=== PATIENT | female | born 1990 | race Caucasian/White ===

== ENCOUNTER → 2017-12-11 11:35 | Outpatient (CLI) | payer MEDICAID, SELFPAY ==
[2017-12-11 14:04] LABS: Absolute Lymphocyte Count 4.65 X10^3/ul (0.83-4.51); Absolute Neutrophil Count 5.2 X10^3/uL (2.0-7.7); Basophil# 0.03 X10^3/uL; Basophil% 0.3 % (0-1); Eosinophil# 0.37 X10^3/uL; Eosinophils% 3.4 % (0-5); Hematocrit 42.2 % (37-47); Hemoglobin 13.7 g/dl (12.0-15.0); Lymphocyte # 4.65 X10^3/ul (4.0); Lymphocyte % 42.3 % (19-41); Mean Corp Hgb Conc 32.5 g/gl (32-36); Mean Corpuscular Hgb 29.3 pg (27.0-32.0); Mean Corpuscular Volume 90.2 fL (81-99); Mean Platelet Vol. 10.9 fl (6.2-12.0); Monocyte# 0.69 X10^3/uL; Monocyte% 6.3 % (0-10); Neutrophil # 5.24 X10^3/uL (2.7-7.7); Neutrophil % 47.5 % (47-70); Platelet Count 325 K/mm3 (150-450); RBC Distribution Width CV 12.7 % (11.6-14.6); RBC Distribution Width SD 41.4 fl (35.1-43.9); Red Blood Count 4.68 M/mm3 (4.2-5.4)
[2017-12-11 14:05] LABS: POSITIVE COUNT NO; POSITIVE DIFFERENTIAL NO; POSITIVE MORPHOLOGY NO
[2017-12-11 14:21] LABS: Vitamin B12 779 pg/mL (211-911); Vitamin D,25 Hydroxy 29.5 ng/mL (29.95-100.01)
== END ==
PROVIDERS: Family Provider Family Medicine; PCP Family Medicine
DX: D72.829 Elevated white blood cell count, unspecified (principal); E53.8 Deficiency of other specified B group vitamins; E55.9 Vitamin D deficiency, unspecified
CPT/HCPCS: 36415; 82306; 82607; 85025

== ENCOUNTER 2019-09-19 18:26 | Emergency (ER) | payer MEDICAID, SELFPAY ==
[2019-09-19 18:27] VITALS: BP 138/76; PULSE 78; RESP 15; TEMP 36.5; O2SAT 97; BMI 40.8
--- NOTE | 2019-09-19 19:03 | CT_ITS ---
STUDY: CTA CHEST REASON FOR EXAM: Female, 28 years old. COUGH WITH RIB PAIN -- HX:ASTHMA RADIATION DOSAGE (If Supplied By Facility): CTDIvol = ( 14.73 ) mGy, DLP = ( 541.85 ) mGycm TECHNIQUE: The examination was performed with the intravenous administration of IV 100 ML ISOVUE 370. Post-processing of the angiographic images was performed, with multiplanar reformation and 3D reconstruction. Individualized dose optimization techniques were used for this CT. COMPARISON: None. FINDINGS: Normal enhancement of the main pulmonary artery and right and left pulmonary arteries. Normal enhancement of the bilateral peripheral pulmonary arteries. There is no demonstrated pulmonary embolism. Normal thoracic aorta and visualized great vessels. There is no demonstrated aortic dissection. Normal heart and pericardium. Normal mediastinum. Normal hilar regions. Normal visualized trachea and bronchi. The lungs are well expanded. There appears to be very mild nonspecific interstitial thickening. No focal infiltration or pulmonary nodule Normal pleura. Normal chest wall structures. Normal osseous structures. Normal visualized upper abdomen. CT/CTA Chest W/WO Contrast IMPRESSION: Minor nonspecific interstitial thickening.. No focal infiltration or pulmonary nodule No evidence for pulmonary embolus Electronically Signed: Kenny Galvin MD at 20:45 EST , Service support ,
--- NOTE | 2019-09-19 19:03 | CT_ITS ---
STUDY: CT ABDOMEN AND PELVIS WITHOUT CONTRAST REASON FOR EXAM: Female, 28 years old. RT FLANK PAIN,NAUSEA,VOMITING AND DIARRHEA,COUGH WITH RIB PAIN,PREG TEST WAS NEGATIVE -- HX:ASTHMA RADIATION DOSAGE (If Supplied By Facility): CTDIvol = ( 21.12 ) mGy, DLP = ( 1081.44 ) mGycm TECHNIQUE: Transaxial images were obtained from the dome of the diaphragm to the symphysis pubis without oral contrast, and without intravenous contrast. Sagittal and coronal images were reconstructed. Individualized dose optimization techniques were used for this CT. COMPARISON: None. FINDINGS: There is minor interstitial thickening in the lower lobes.. The visualized portions of the heart are within normal limits. There is elongation of the right lobe of the liver system with normal variant. Attenuation is homogeneous without mass or bile duct dilatation. Gallbladder not visualized which may be consistent with prior cholecystectomy.. Normal spleen. Normal pancreas. Normal bilateral adrenal glands. Normal right kidney. Normal left kidney. Normal visualized stomach. Mild nonspecific ileus.. The appendix is visualized and appears normal. Normal abdominal aorta. Normal inferior vena cava. Normal retroperitoneum. Incompletely distended mildly thick-walled bladder likely of no significance. Small fat-containing periumbilical hernia. Normal osseous structures. CT/Abdomen/Pelvis without Cont IMPRESSION: Mild nonspecific ileus . No evidence for small bowel obstruction. Nonvisualization of gallbladder likely cholecystectomy however clinical correlation is recommended Electronically Signed: Kenny Galvin MD at 20:49 EST , Service support ,
--- NOTE | 2019-09-19 19:17 | ED.DCSUM_ITS ---
- ER Visit Summary Date of Service: 09/19/19 Chief Complaint: Nausea, flank pain History of Present Illness: The patient is a 28 F presenting with nausea, flank pain. Patient states that this started 2 days ago. She has had subjective fevers and nausea without vomiting. She has had diarrhea. She complains of right flank pain. Denies urinary complaints. She states that it hurts to take a deep inspiration. No recent trauma. No PE/DVT risk factors. She states her right sided rib pain has been ongoing for the past 2 weeks but has been progressively worsening. She does have multiple sick contacts. She denies other complaints. Physical Examination: Vitals are stable. Patient is afebrile. Alert no acute distress. HEENT exam is unremarkable. Neck is supple. Lungs are clear and equal bilaterally. Heart is regular rate and rhythm. Abdomen is soft nontender nondistended. No guarding or rebound Right CVA tenderness Extremities are unremarkable. Skin is warm and dry. No focal neurologic deficit. Remainder of exam is unremarkable. Emergency Department Course and Treatment: Patient given IV fluids, Zofran. CBC, chemistries unremarkable. Lipase is normal. Urinalysis unremarkable. hCG negative. CTA chest shows minor nonspecific interstitial thickening. No focal infiltration or pulmonary nodule. No evidence for pulmonary embolus. CT abdomen pelvis shows mild nonspecific ileus. No evidence for small bowel obstruction. The appendix is visualized and appears normal. On reevaluation, patient is requesting discharge home. She is given a prescription for Zofran. Advised return to ED for worsening complaints. Disposition: Discharge home Impression: Nausea, diarrhea, flank pain This note was generated with [employer] dictation software. It may contain incorrect words, spelling, and punctuation that were not noted in review of the chart prior to signing ED Disposition - Plan for ED Patient: Disposition: Home or Assisted Living Instructions: VOMITING AND DIARRHEA, Nonspecific (Adult) Prescriptions: Ondansetron [Zofran Odt] 4 mg PO Q8H PRN PRN #10 tab PRN Reason: Nausea Prescription Printed Referrals: Kenny Richards MD [Primary Care Provider] -
[2019-09-19] MEDS: 0.9% Normal Saline 1,000 ML 1000 ML IV (19:18)
[2019-09-19] MEDS: Ondansetron 4 MG/2 ML Vial IV (19:18)
[2019-09-19 19:23] LABS: Absolute Lymphocyte Count 2.07 X10^3/uL (0.83-4.51); Absolute Neutrophil Count 5.7 X10^3/uL (2.0-7.7); Basophil# 0.04 X10^3/uL; Basophil% 0.5 % (0-1); Eosinophil# 0.13 X10^3/uL; Eosinophils% 1.5 % (0-5); Hematocrit 40.1 % (37-47); Hemoglobin 13.2 g/dL (12.0-15.0); Lymphocyte # 2.07 X10^3/ul (4.0); Lymphocyte % 24.3 % (19-41); Mean Corp Hgb Conc 32.9 g/dL (32-36); Mean Corpuscular Hgb 29.3 pg (27.0-32.0); Mean Corpuscular Volume 88.9 fL (81-99); Mean Platelet Vol. 10.7 fl (6.2-12.0); Monocyte# 0.61 X10^3/uL; Monocyte% 7.2 % (0-10); NRBC Flagged by Analyzer 0 % (0-5); Neutrophil # 5.66 X10^3/uL (2.7-7.7); Neutrophil % 66.3 % (47-70); Platelet Count 274 K/mm3 (150-450); RBC Distribution Width CV 12.9 % (11.6-14.6); RBC Distribution Width SD 42.2 fl (35.1-43.9); Red Blood Count 4.51 M/mm3 (4.2-5.4); White Blood Count 8.5 K/mm3 (4.4-11.0)
[2019-09-19 19:28] LABS: Bacteria 0 SEEN /hpf (None Seen); Mucous, Urine 0 SEEN /hpf (<or=2+); Red Blood Cells-Urine 0 SEEN /hpf (0-5)
[2019-09-19 19:29] LABS: Color, Urine Yellow (Yellow); Glucose, Dipstick Normal (Normal); Ketone-Dipstick Negative (Negative); Leukocyte Esterase-Dipstick Negative /ul (Negative); Nitrite-Dipstick Negative (Negative); Occult Blood-Urine 250 /ul (Negative); Protein-Dipstick Negative (Negative); Specific Gravity, Urine 1.015 (1.002-1.030); Urine Bilirubin Dipstick Negative (Negative); Urine Clarity Sl. Cloudy (Clear); Urine Urobilinogen Normal (Normal)
[2019-09-19 19:43] LABS: Internal QC Validated? YES +Cl - CLEAR BKGD; Pregnancy, Serum, hCG Quali. NEGATIVE Negative
[2019-09-19 19:49] LABS: ALB/GLOB Ratio 0.9 RATIO (0.9-2.4); AST(SGOT) 27 U/L (15-37); Alanine Aminotransfer ALT/SGPT 46 U/L (13-56); Albumin, Serum 3.5 g/dL (3.2-5.0); Alkaline Phosphatase 47 U/L (45-117); Anion Gap 6 (5-15); BUN 8 mg/dL (7-18); BUN/Creat Ratio 9.2 RATIO (10-20); Calcium,Total 8.9 mg/dL (8.5-10.1); Chloride 110 mmol/L (98-107); Creatinine, Serum 0.87 mg/dL (0.55-1.02); EST Glomerular Filtration Rate 82 mL/min (>60); Est Glom Filt Rate - Afr Amer 99 mL/min (>60); Estimated Creatinine Clearance 72.65 ml/min; Globulin 3.7 g/dL (2.2-4.2); Glucose 84 mg/dL (74-106); Lipase 56 U/L (73-393); Potassium 3.5 mmol/L (3.5-5.1); Protein, Total 7.2 g/dL (6.4-8.2); Sodium Level 140 mmol/L (136-145)
[2019-09-19 20:13] LABS: Squamous Epithelial Cells - UA 0-5 SEEN /hpf (5-10)
[2019-09-19 20:14] LABS: White Blood Cells 0-5 SEEN /hpf (0-5)
[2019-09-19 21:00] VITALS: RESP 16
--- NOTE | 2019-09-19 21:35 | ED.DEP ---
ED Disposition - Plan for ED Patient: Instructions: VOMITING AND DIARRHEA, Nonspecific (Adult) Prescriptions: Ondansetron [Zofran Odt] 4 mg PO Q8H PRN PRN #10 tablet PRN Reason: Nausea Referrals: Kenny Richards MD [Primary Care Provider] -
[2019-09-19 21:46] VITALS: BP 130/68; PULSE 72; RESP 16; O2SAT 96
== END 2019-09-19 21:47 | disposition home or self-care (01) ==
PROVIDERS: Emergency Provider Emergency Medicine; PCP Family Medicine
DX: R19.7 Diarrhea, unspecified (principal); K56.7 Ileus, unspecified; R11.0 Nausea; R10.9 Unspecified abdominal pain; M19.90 Unspecified osteoarthritis, unspecified site; Z72.0 Tobacco use; Z79.899 Other long term (current) drug therapy
CPT/HCPCS: 71275; 74176; 80053; 81001; 83690; 84703; 85025; 96361; 96374; 99283; J7030; Q9967; A4216; J2405

== ENCOUNTER 2021-10-19 15:56 | Emergency (ER) | payer MEDICAID, SELFPAY ==
[2021-10-19 15:57] VITALS: BP 120/83; PULSE 64; RESP 14; TEMP 36.6; O2SAT 98; BMI 36.4
--- NOTE | 2021-10-19 16:23 | RAD_ITS ---
STUDY: X-RAY - THORACIC SPINE REASON FOR EXAM: Female, 30 years old. fall TECHNIQUE: 2 view(s) of the thoracic spine were obtained. COMPARISON: None. FINDINGS: Normal kyphosis of the thoracic spine. There is no substantial scoliosis. Normal thoracic vertebrae and endplates. Normal disc space heights. No visualized fracture or compression deformity. The soft tissue structures are unremarkable. RAD/Thoracic Spine 2 Views IMPRESSION: Normal x-ray examination of the thoracic spine. Electronically Signed: Kranthi Rudolph MD at 17:35 EST ,
--- NOTE | 2021-10-19 16:23 | RAD_ITS ---
STUDY: X-RAY - PELVIS REASON FOR EXAM: Female, 30 years old. pt has fell twice over the last week. wants evaluated to continuation of pain. TECHNIQUE: One view of the pelvis was obtained. COMPARISON: None. FINDINGS: There is a non-specific bowel gas pattern. Normal visualized soft tissue structures. No visualized fracture or displaced fragment. Normal bilateral iliac wings, sacroiliac joints and visualized sacrum. Normal visualized bilateral superior and inferior pubic rami. Normal pubic symphysis. Normal ischial tuberosities. Normal visualized right femoral head. Normal right acetabulum. Normal right hip joint. Normal visualized left femoral head. Normal left acetabulum. Normal left hip joint. RAD/Pelvis 1 or 2 Views IMPRESSION: Normal x-ray examination of the pelvis. Electronically Signed: Kranthi Rudolph MD at 17:32 EST ,
--- NOTE | 2021-10-19 16:23 | RAD_ITS ---
STUDY: X-RAY - UNILATERAL RIBS ( RIGHT ) WITH CHEST REASON FOR EXAM: Female, 30 years old. pt has fell twice over the last week. wants evaluated to continuation of pain. posterior rt lower ribs TECHNIQUE - RIBS: 4 view(s) of the ribs. TECHNIQUE - CHEST: Single PA view of the chest. COMPARISON: None. FINDINGS - RIBS: Normal visualized ribs without a demonstrated fracture. FINDINGS - CHEST: The lungs are clear and expanded. There is no demonstrated pleural abnormality. Normal size heart. Normal mediastinum and bernardo. Normal visualized pulmonary arteries. Normal visualized aortic arch and descending thoracic aorta. Normal visualized thoracic spine. Normal visualized ribs, clavicles, and shoulders. There is no demonstrated abnormality of the visualized soft tissue structures of the upper abdomen. RAD/Ribs Uni Min 3V w/PA Chest IMPRESSION: RIBS: Normal x-ray examination of the ribs. CHEST: Normal x-ray examination of the chest. Electronically Signed: Kranthi Rudolph MD at 17:34 EST ,
--- NOTE | 2021-10-19 16:23 | RAD_ITS ---
STUDY: X-RAY - LEFT HAND REASON FOR EXAM: Female, 30 years old. pt has fell twice over the last week. wants evaluated to continuation of pain. TECHNIQUE: 3 view(s) of the hand. COMPARISON: None. FINDINGS: Normal radiocarpal articulation. Normal distal radioulnar joint. Normal visualized carpal bones. Normal carpal articulations Normal carpometacarpal articulation of the thumb. Normal second through fifth carpometacarpal joints. Normal metacarpi. No visualized fracture. Normal metacarpophalangeal joint of the thumb. Normal interphalangeal joint of the thumb. Normal proximal and distal phalanges of the thumb. Normal metacarpophalangeal joints of the second through fifth fingers. Normal proximal and distal interphalangeal joints of the second through fifth fingers. Normal phalanges of the second through fifth fingers. The soft tissue structures are unremarkable. RAD/Hand Min 3 Views IMPRESSION: Normal x-ray examination of the hand. Electronically Signed: Kranthi Rudolph MD at 17:12 EST ,
--- NOTE | 2021-10-19 16:23 | RAD_ITS ---
STUDY: X-RAY - CERVICAL SPINE REASON FOR EXAM: Female, 30 years old. pt has fell twice over the last week. wants evaluated to continuation of pain. TECHNIQUE: For view(s) of the cervical spine were obtained. COMPARISON: None FINDINGS: Normal anterior atlantoaxial articulation. Normal odontoid process. There is reversal of the normal cervical lordosis. Normal vertebral bodies and endplates. Normal disc space heights. The soft tissue structures are unremarkable. There is no demonstrated fracture of the cervical spine. RAD/Cerv Spine 2 or 3 Views IMPRESSION: Reversal of the cervical lordosis Electronically Signed: Kranthi Rudolph MD at 17:28 EST ,
--- NOTE | 2021-10-19 16:24 | EX.ED.GENINJ ---
HPI History of Present Illness Chief Complaint: Fall Detail of Chief Complaint: Falls x2 in the last 2 weeks Informant: patient Narrative Narrative: Patient presents to the emergency department complaint of a fall that occurred initially 2 weeks ago. Patient slipped on some water in the kitchen and fell with her head against a freezer. She complained of pain in her back and neck at that time and has not gotten better. Patient also states she fell 3 days ago outside in the ice and injured her left hand left hip. Patient wants evaluated for her injuries. Patient denies regular head or loss of consciousness. Patient has history of autism as well as osteoarthritis and vitamin D deficiency. [facility] Medical History (Updated 10/19/21 @ 18:[address] Fariba Liang, DO) GERD (gastroesophageal reflux disease) Hiatal hernia Home Medications cholecalciferol (vitamin D3) 2,000 unit PO MOWEFR 09/19/19 [History Last Taken Unknown] omeprazole 20 mg PO DAILY 09/19/19 [History Last Taken Unknown] Allergy/AdvReac Type Severity Reaction Status Date / Time gabapentin Allergy Other Verified 10/19/21 15:57 Surgical History (Updated 10/19/21 @ 16:29 by Lilian Zamora) History of cholecystectomy Social History Smoking Status: Former smoker ROS ROS ED Constitutional Constitutional ED: Reports systems reviewed and no addt'l complaints, except as documented; Denies body ache(s), change in weight or chills Eyes Eyes: Denies acute decrease in peripheral vision, change in vision, double vision or loss of vision ENT ENT ED: Reports none; Denies ear pain, lip swelling, loss taste/smell, neck pain, otalgia or sore throat Cardiovascular Cardiovascular: Reports none; Denies abdominal pain, chest pain with activity, leg edema, lightheadedness, palpitations, rapid heart rate or syncope Respiratory/Chest Respiratory/Chest: Reports none; Denies change in mental status, dry cough, dyspnea, hemoptysis, shortness of breath at rest or shortness of breath with exertion Gastrointestinal Gastrointestinal: Reports none; Denies abdominal pain, change in stool character, diarrhea, hematemesis, hematochezia, melena, rectal bleeding or vomiting Genitourinary Genitourinary ED: Reports none; Denies abdominal discomfort, anuria, dysuria, genital pain or polyuria Musculoskeletal Musculoskeletal: Reports none, back pain, neck pain and other Details: Left hip pain and left hand pain ; Denies arthralgias, difficulty walking, extremity pain, muscle weakness or myalgias Integumentary Reports none; Denies abscess or rash Neurologic Neurologic: Reports none; Denies abnormal gait, confusion, focal weakness, frequent falls, headache(s), loss of vision, numbness, paresthesias, radicular pain, vertigo or weakness Psychiatric Psychiatric: Reports systems reviewed and no addt'l complaints, except as documented and none; Denies behavioral changes, confusion, difficulty concentrating, hallucinations, suicidal ideation, tactile hallucinations or visual hallucinations Endocrine Endocrinology: Denies none, cold intolerance, excessive sweating, fatigue or heat intolerance Hematologic/Lymphatic Hematologic/Lymphatic: Reports none; Denies anemia, easy bleeding or easy bruising Allergic/Immunologic Allergic/Immunologic ED: Denies as per HPI, none, lip swelling, mouth swelling, throat swelling, tongue swelling or hives EXAM Physical Exam Const Vital Signs: 10/19/21 15:57 10/19/21 16:26 Temperature 97.8 F Temperature Source Temporal Pulse Rate 64 Respiratory Rate 14 Respiratory Effort Normal Non-Labored Respiratory Depth Normal Respiratory Pattern Normal Blood Pressure 120/83 H Blood Pressure Mean 95 Pulse Ox 98 98 Oxygen Delivery Method Room Air Room Air Positive well nourished and well developed General Appearance ED: well developed and NAD HEENT Reports TM's clear and moist mucous membranes normocephalic and atraumatic; Negative for trauma or tenderness Tympanic Membrane ED: Yes TM's clear Eyes PERRL and EOMs intact bilaterally General Eye ED: Negative for pale conjunctiva or scleral icterus Neck no lymphadenopathy, supple and no JVD Neck Narrative: Patient with tenderness palpation over the base of the neck in the area of C7 and left of midline. No bony step-offs noted. Good range of motion flexion extension. General: tenderness Chest Wall inspection of chest normal and palpation of chest normal Chest: Negative for tenderness Resp normal respiratory effort and clear to auscultation bilaterally Effort and Inspection: Negative for respiratory distress or pain with movement Auscultation: Negative for rhonchi, wheezes or diminished lung sounds Cardio regular rate, regular rhythm, S1 normal heart sound, S2 normal heart sound and no murmurs Peripheral Pulses: pulses 2+ throughout GI normal to inspection, nondistended, normoactive bowel sounds, soft to palpation, non-tender, non-distended and no masses Back/Spine no CVA tenderness Back/Spine Narrative: Patient with some tenderness diffusely over the lower thoracic spine as well as the right lower ribs. There is no ecchymosis or bruising noted. No bony step-offs. No soft emphysema palpated. Extremity Extremity Narrative: Family gonzáles of the left hand reveals a small abrasion that is healing over the thenar eminence. Patient has some diffuse tenderness palpation at the base of the palm. Neurovascularly intact. No obvious deformity. Evaluation of the left hip reveals some tenderness palpation but no deformity and there is no external rotation or shortening of the extremity. General Extremety ED: Negative for edema General Extremity: Negative for edema Neuro oriented x3, CN's II-XII intact bilaterally, no sensory deficits noted and gait normal Sensorium / Orientation: awake, alert, oriented to person, oriented to place and oriented to time Motor Exam: strength 5/5 throughout and strength abnormal Psych mental status grossly normal Skin no rashes or lesions noted and no wounds MDM MDM MDM Narrative Medical decision making narrative: Patient had x-rays of the cervical spine as well as right ribs and left hand and pelvis which were read by radiology as no acute fractures. Patient did not want thing for pain here or for home. She will continue with ibuprofen and Tylenol. Patient advised to follow-up with her primary care physician in 5 to 7 days. Radiography Diagnostic Testing: Clinical Impression(s) from Imaging Studies Cervical Spine X-Ray 10/19/21 16:23 IMPRESSION: Reversal of the cervical lordosis Electronically Signed: Kranthi Rudolph MD at 17:28 EST Reading Location ID and State: [address] [place] [address] , Service support , Hand X-Ray 10/19/21 16:23 IMPRESSION: Normal x-ray examination of the hand. Electronically Signed: Kranthi Rudolph MD at 17:12 EST , Pelvis X-Ray 10/19/21 16:23 IMPRESSION: Normal x-ray examination of the pelvis. Electronically Signed: Kranthi Rudolph MD at 17:32 EST , Ribs w/Chest X-Ray 10/19/21 16:23 IMPRESSION: RIBS: Normal x-ray examination of the ribs. CHEST: Normal x-ray examination of the chest. Electronically Signed: Kranthi Rudolph MD at 17:34 EST Reading Location ID and State: [facility] / [place] , Service support , Thoracic Spine X-Ray 10/19/21 16:23 IMPRESSION: Normal x-ray examination of the thoracic spine. Electronically Signed: Kranthi Rudolph MD at 17:35 EST , Three-view x-rays of the left hand obtained interpreted by myself as no acute fractures. Radiology in agreement. Patient had 1 view x-ray of pelvis which interpreted as normal by myself and radiology in agreement. Patient had x-rays of the cervical spine and I do not appreciate any obvious fractures or dislocations. Radiology in agreement. Patient also had x-rays of right ribs 3 views with PA chest interpreted by myself as no acute fractures and no pneumothorax. Radiology in agreement. Discharge Plan Triage Chief Complaint: Fall ED Provider: Fariba Liang Dx/Rx/DC Orders Clinical Impression: Cervical strain, Chest wall contusion, Contusion of hip, left Instructions: Bone Contusion, ED Soft Tissue Contusion, ED Hip Contusion, ED Neck Sprain or Strain, ED Rib Contusion or Minor Fracture Prescriptions: No Action omeprazole 20 MG capsule 20 mg PO DAILY RF: 0 cholecalciferol (vitamin D3) 2,000 UNIT capsule 2,000 unit PO MOWEFR RF: 0 Primary Care Provider: Kenny Richards Referrals: Kenny Richards MD [Primary Care Provider] - 5-7 Days Disposition Disposition: Home, Self Care
[2021-10-19 16:26] VITALS: O2SAT 98
[2021-10-19 18:35] VITALS: BP 134/95; PULSE 64; RESP 16; O2SAT 98
== END 2021-10-19 18:36 | disposition home or self-care (01) ==
PROVIDERS: Emergency Provider Emergency Medicine; PCP Family Medicine; Visit Provider Emergency Medicine
DX: S16.1XXA Strain of muscle, fascia and tendon at neck level, initial encounter (principal); S20.20XA Contusion of thorax, unspecified, initial encounter; S69.92XA Unspecified injury of left wrist, hand and finger(s), initial encounter; S70.02XA Contusion of left hip, initial encounter; W00.9XXA Unspecified fall due to ice and snow, initial encounter; F84.0 Autistic disorder; M19.90 Unspecified osteoarthritis, unspecified site; E55.9 Vitamin D deficiency, unspecified; K21.9 Gastro-esophageal reflux disease without esophagitis; Z87.891 Personal history of nicotine dependence
CPT/HCPCS: 71101; 72040; 72070; 72170; 73130; 99282

== ENCOUNTER 2023-05-28 14:04 | Emergency (ER) | payer MEDICAID, SELFPAY ==
[2023-05-28 14:06] VITALS: BP 125/83; PULSE 56; RESP 18; TEMP 36.2; O2SAT 100; BMI 33.5
[2023-05-28] MEDS: Ipratropium/Albuterol Sulfate 3 ML AMPUL.NEB INHALATION (15:25)
[2023-05-28 15:27] VITALS: PULSE 88; RESP 18; O2SAT 94
[2023-05-28] MEDS: Mag Hydrox/Al Hydrox/Simeth 30 ML UDC PO (15:27)
[2023-05-28 15:36] LABS: ALB/GLOB Ratio 1.1 RATIO (0.9-2.4); AST(SGOT) 16 U/L (15-37); Alanine Aminotransfer ALT/SGPT 28 U/L (13-56); Albumin, Serum 4.2 g/dL (3.2-5.0); Alkaline Phosphatase 59 U/L (45-117); Anion Gap 10 (5-15); BUN 8 mg/dL (7-18); Calcium,Total 9.6 mg/dL (8.5-10.1); Chloride 109 mmol/L (98-107); EST Glomerular Filtration Rate 88 mL/min (>60); Est Glom Filt Rate - Afr Amer 106 mL/min (>60); Estimated Creatinine Clearance 76.18 ml/min; Globulin 3.8 g/dL (2.2-4.2); Glucose 92 mg/dL (74-106); Lipase 25 U/L (13-75); Potassium 3.8 mmol/L (3.5-5.1); Sodium Level 140 mmol/L (136-145)
--- NOTE | 2023-05-28 15:55 | RAD_ITS ---
INDICATION: sob, vomiting EXAMINATION/TECHNIQUE: X-RAY - XR Chest 2 Views COMPARISON: 10/19/2021. FINDINGS: The lungs are clear. The cardiomediastinal silhouette is unremarkable. No pleural effusion or pneumothorax. Degenerative changes of the thoracic spine. RAD/Chest PA and Lateral IMPRESSION: No acute radiographic abnormalities. Electronically Signed: Arvin Velasquez MD at 17:00 EDT ,
--- NOTE | 2023-05-28 16:03 | ED.RN ---
called lab for blood work
--- NOTE | 2023-05-28 16:33 | EX.ED.DYSGE1 ---
HPI History of Present Illness Chief Complaint: Nausea/Vomiting Informant: patient Narrative Narrative: Patient is a 32-year-old female with remote history of stomach issues that was on omeprazole one-point presenting with episode of vomiting that she describes as coffee-ground's. Patient states she is been having some stomach issues for the past few weeks. She has been having burning in her epigastric region. She notes her stools have been slightly darker. Today she was cleaning the house around noon when all of a sudden she felt she had to throw up. She went to the bathroom and projectile vomited. She states her vomit was mostly clear and she not eaten yet but she did have some brown/coffee-ground substance. Nurse on-call line who recommended she come to the ER to be checked out. She does note that since going up she is been more short of breath and wheezing. She does have a history of asthma and states it is well controlled and she really has issues that she has a cold. She does smoke cigarettes but is cutting back [place] at 5 cigarettes this week. She denies any alcohol use. She has been taking ibuprofen daily (about 2/day over the past few weeks due to headaches. She is no longer on any's antacid medicines. Denies any fever or chills. Denies any other abdominal pain. No other complaints or concerns at this time. States she has had a lot of stress lately and was actually recently homeless but has since found housing. [facility] Medical History GERD (gastroesophageal reflux disease) Hiatal hernia Home Medications cholecalciferol (vitamin D3) 50 mcg (2,000 unit) capsule 2,000 unit PO MOWEFR 09/19/19 [History Last Taken Unknown] albuterol sulfate 90 mcg/actuation breath activated powder inhaler (ProAir RespiClick) 1 inh inhalation Q6H PRN shortness of breath or wheezing #1 ea 05/28/23 [Rx Last Taken Unknown] omeprazole 20 mg capsule,delayed release 20 mg PO DAILY 30 days #30 caps 05/28/23 [Rx Last Taken Unknown] Allergy/AdvReac Type Severity Reaction Status Date / Time gabapentin Allergy Other Verified 05/28/23 14:06 Surgical History History of cholecystectomy Social History Smoking Status: Former smoker ROS ROS ED Constitutional Constitutional ED: Denies chills or fever(s) Cardiovascular Cardiovascular: Denies chest pain Respiratory/Chest Respiratory/Chest: Reports cough and dyspnea Gastrointestinal Gastrointestinal: Reports abdominal pain, nausea, vomiting and other Details: Stools darker ; Denies diarrhea or melena Genitourinary Genitourinary ED: Denies dysuria Musculoskeletal Musculoskeletal: Denies arthralgias or myalgias Integumentary Denies rash Neurologic Neurologic: Reports headache(s); Denies weakness Psychiatric Psychiatric: Denies anxiety Hematologic/Lymphatic Hematologic/Lymphatic: Denies anemia or easy bleeding EXAM Physical Exam Const Vital Signs: 05/28/23 14:06 05/28/23 15:27 05/28/23 15:27 Temperature 97.2 F L Temperature Source Temporal Pulse Rate 56 L 88 Respiratory Rate 18 18 Respiratory Pattern Normal Blood Pressure 125/83 H Blood Pressure Mean 97 Pulse Ox 100 94 Oxygen Delivery Method Room Air Room Air Positive well nourished and well developed General Appearance ED: well developed and NAD HEENT Reports moist mucous membranes Eyes PERRL General Eye ED: Negative for pale conjunctiva Neck supple Chest Wall inspection of chest normal and palpation of chest normal Resp Resp Narrative: Mildly dyspneic. Coarse breath sounds throughout. No significant wheezing. Cardio regular rate, regular rhythm and no murmurs GI normal to inspection, nondistended, normoactive bowel sounds and non-tender Extremity normal to inspection General Extremety ED: Negative for edema General Extremity: Negative for edema Neuro oriented x3 Sensorium / Orientation: alert Motor Exam: Negative for general weakness Psych mental status grossly normal Mood & Affect: anxious Skin no rashes or lesions noted and no wounds MDM MDM MDM Narrative Medical decision making narrative: Evaluated for an episode of vomiting and she showed me a picture which shows that there are brown specks in it. She is concern for coffee-ground emesis. She has been having some ongoing upper GI symptoms. She was nontoxic no acute distress. Physical exam is most remarkable for coarse breath sounds throughout. I will give her a DuoNeb and obtain a chest x-ray in case she has some type of chemical pneumonitis from the vomiting. Abdomen is soft and nontender I do not think she needs abdominal imaging. We will obtain a CBC to look for anemia as well as CMP and lipase. As patient is currently not nauseous we will refrain from giving any Zofran at this time. We will trial a GI cocktail for symptom control. CBC is still pending however CMP shows a normal BUN to creatinine ratio and a normal lipase as well as liver enzymes. Low suspicion for significant upper GI bleed especially given her normal BUN. Patient has a history of elevated white blood cell counts. States has been seen by hematology/oncology but they could not tell her why she is that she did have cancer. On repeat evaluation patient states she is feeling better. The GI cocktail helped her epigastric burning pain and the breathing treatment helped her breathing symptoms. She would like a prescription for new inhaler. Wheezing is more reactivity associate with her episode of vomiting. Do not think she requires antibiotics or steroids at this time. we will start the patient back on a PPI, prescribed albuterol HFA inhaler and give her outpatient PCP/surgery follow-up. Discussed that she might require an EGD and follow-up with surgery for this. 2 view chest x-ray does not show any acute process including pneumonitis or pneumonia. This is on my interpretation. Lab Data Attestation: I reviewed the patient's lab results. Labs: Laboratory Results - last 24 hr 05/28/23 05/28/23 15:10 15:10 WBC Cancelled Corrected WBC Cancelled RBC Cancelled Hgb Cancelled Hct Cancelled MCV Cancelled MCH Cancelled MCHC Cancelled RDW Std Deviation Cancelled RDW Coeff of Stephanie Cancelled Plt Count Cancelled MPV Cancelled Immature Gran % (Auto) Cancelled Neut % (Auto) Cancelled Lymph % (Auto) Cancelled [place] % (Auto) Cancelled Eos % (Auto) Cancelled Baso % (Auto) Cancelled Absolute Neuts (auto) Cancelled Absolute Lymphs (auto) Cancelled Total Counted Cancelled Neutrophils % (Manual) Cancelled Band Neutrophils % Cancelled Lymphocytes % (Manual) Cancelled Monocytes % (Manual) Cancelled Eosinophils % (Manual) Cancelled Basophils % (Manual) Cancelled Metamyelocytes % Cancelled Myelocytes % Cancelled Promyelocytes % Cancelled Blast Cells % Cancelled Plasma Cell % (Manual) Cancelled Other Cells % Cancelled Nucleated RBC % Cancelled Nucleated RBCs/100 WBC Cancelled Differential Comment Cancelled Diff Path Review Cancelled Hypersegmented Neuts Cancelled Atypical Lymphocytes Cancelled Reactive Lymphocytes Cancelled Smudge Cells Cancelled Toxic Granulation Cancelled Toxic Vacuolation Cancelled Dohle Bodies Cancelled Ramirez Rods Cancelled Platelet Estimate Cancelled Plt Morphology Comment Cancelled RBC Morphology Cancelled Cancelled Polychromasia Cancelled Hypochromasia Cancelled Poikilocytosis Cancelled Basophilic Stippling Cancelled Anisocytosis Cancelled Microcytosis Cancelled Macrocytosis Cancelled Spherocytes Cancelled Sickle Cells Cancelled Target Cells Cancelled Tear Drop Cells Cancelled Ovalocytes Cancelled Stomatocytes Cancelled [place] Bodies Cancelled Christen Cells Cancelled Bite Cells Cancelled Crenated Cell Cancelled Acanthocytes (Spur) Cancelled Rouleaux Cancelled Schistocytes Cancelled Sodium 140 Potassium 3.8 Chloride 109 H Carbon Dioxide 21.0 Anion Gap 10 BUN 8 Creatinine 0.80 Estim Creat Clear Calc 76.18 Est GFR (MDRD) Af Amer 106 Est GFR (MDRD) Non-Af 88 BUN/Creatinine Ratio 10.0 Glucose 92 Calcium 9.6 Total Bilirubin 0.60 AST 16 ALT 28 Alkaline Phosphatase 59 Total Protein 8.0 Albumin 4.2 Globulin 3.8 Albumin/Globulin Ratio 1.1 Lipase 25 Discharge Plan Triage Chief Complaint: Nausea/Vomiting ED Provider: Radha Mckeon Dx/Rx/DC Orders Clinical Impression: Bilateral wheezing, Abdominal pain, epigastric, Vomiting Instructions: ED Bronchospasm (Adult), ED Epigastric Pain Uncertain Cause Prescriptions: New ProAir RespiClick 90 mcg/actuation aerosol powdr breath activated 1 inh inhalation Q6H PRN (Reason: shortness of breath or wheezing) Qty: 1 0RF Continued omeprazole 20 MG capsule 20 mg PO DAILY 30 Days Qty: 30 0RF No Action cholecalciferol (vitamin D3) 2,000 UNIT capsule 2,000 unit PO MOWEFR Primary Care Provider: Care Physician,No Primary Referrals: Roxann Fiore MD [Med Staff - Poll Clerk] - As Needed Prateek Reyna MD [Med Staff - Active Staff] - 1-2 Weeks Care Physician,No Primary [Primary Care Provider] - Disposition Disposition: Home, Self Care
[2023-05-28] MEDS: 0.9% Normal Saline (1000mL) 1,000 ML 999 ML IV (17:00)
[2023-05-28 17:02] VITALS: BP 108/81; PULSE 58
[2023-05-28 17:09] LABS: Bacteria 0 SEEN /hpf (None Seen); Mucous, Urine 0 SEEN /hpf (<or=2+); Red Blood Cells-Urine 0 SEEN /hpf (0-5); White Blood Cells 0 SEEN /hpf (0-5)
[2023-05-28 17:13] LABS: Absolute Neutrophil Count 7.4 X10^3/uL (2.0-7.7); Basophil# 0.08 X10^3/uL; Basophil% 0.7 % (0-1); Eosinophil# 0.35 X10^3/uL; Eosinophils% 2.9 % (0-5); Hematocrit 41.2 % (37-47); Hemoglobin 13.7 g/dL (12.0-15.0); Lymphocyte % 28.6 % (19-41); Mean Corp Hgb Conc 33.3 g/dL (32-36); Mean Corpuscular Hgb 30.8 pg (27.0-32.0); Mean Corpuscular Volume 92.6 fL (81-99); Mean Platelet Vol. 10.9 fl (6.2-12.0); Monocyte# 0.65 X10^3/uL; Monocyte% 5.5 % (0-10); NRBC Flagged by Analyzer 0 % (0-5); Neutrophil # 7.36 X10^3/uL (2.7-7.7); Platelet Count 300 K/mm3 (150-450); RBC Distribution Width CV 12.3 % (11.6-14.6); RBC Distribution Width SD 42.3 fl (35.1-43.9); Red Blood Count 4.45 M/mm3 (4.2-5.4); White Blood Count 11.9 K/mm3 (4.4-11.0)
[2023-05-28 17:17] LABS: Color, Urine Yellow (Yellow); Glucose, Dipstick Normal (Normal); Ketone-Dipstick 50 mg/dl (Negative); Leukocyte Esterase-Dipstick Negative /ul (Negative); Nitrite-Dipstick Negative (Negative); Occult Blood-Urine Negative /ul (Negative); Protein-Dipstick Negative (Negative); Urine Bilirubin Dipstick Negative (Negative); Urine Clarity Sl. Cloudy (Clear); Urine Urobilinogen Normal (Normal)
[2023-05-28 18:19] LABS: Squamous Epithelial Cells - UA 0-5 SEEN /hpf (5-10)
[2023-05-28 18:27] LABS: Internal QC Validated? YES +Cl - CLEAR BKGD; Pregnancy, Urine Negative Negative
== END 2023-05-28 19:24 | disposition home or self-care (01) ==
PROVIDERS: Emergency Provider Emergency Medicine; Visit Provider Emergency Medicine
DX: R10.13 Epigastric pain (principal); R51.9 Headache, unspecified; Z87.891 Personal history of nicotine dependence; Z63.79 Other stressful life events affecting family and household; J45.909 Unspecified asthma, uncomplicated; R11.2 Nausea with vomiting, unspecified; Z79.899 Other long term (current) drug therapy; R06.09 Other forms of dyspnea
CPT/HCPCS: 71046; 80053; 81001; 81025; 83690; 85025; 94640; 96360; 96361; 99285; J7030; A4216

== ENCOUNTER 2023-06-29 07:21 | Day surgery (SDC) | payer MEDICAID, SELFPAY ==
--- NOTE | 2023-06-29 07:44 | PCM.HP.BLA ---
History and Physical Date of Admission: 06/29/23 Date of Service: 06/13/23 MR#: [id number] Acct: [id number] Name: KEN LAZAR Rep #: [id number] : 1990 Provider: Dr. Prateek Reyna MD Age/Sex: 32/F Location: [facility] Status: Signed Intake Vital Signs 05/28/2314:06 Height 5 ft 1 in Intake Visit Reasons: ABDOMINAL PAIN/VOMITING ER 05/29 Chief Complaint: abd pain [employer] Required: No Is patient in pain?: Yes (abdomen) Allergies gabapentin Allergy (Verified 06/13/23 15:06) Other Medications cholecalciferol (vitamin D3) 50 mcg (2,000 unit) capsule 2,000 unit PO MOWEFR 09/19/19 [History Confirmed 06/13/23] albuterol sulfate 90 mcg/actuation breath activated powder inhaler (ProAir RespiClick) 1 inh inhalation Q6H PRN shortness of breath or wheezing #1 ea 05/28/23 [Rx Confirmed 06/13/23] omeprazole 20 mg capsule,delayed release 20 mg PO DAILY 30 days #30 caps 05/28/23 [Rx Confirmed 06/13/23] fluoxetine 90 mg capsule,delayed release mg PO 06/13/23 [History Confirmed 06/13/23] guanfacine 3 mg tablet,extended release 24 hr mg PO 06/13/23 [History Confirmed 06/13/23] hydroxyzine HCl 10 mg tablet mg PO 06/13/23 [History Confirmed 06/13/23] sucralfate 1 gram tablet (Carafate) 1 g PO QACHS 2 weeks #56 tabs 06/13/23 [Rx Confirmed 06/13/23] PFSH Medical History (Updated 06/13/23 @ 20:[address] Prateek Reyna MD) Anxiety Depression GERD (gastroesophageal reflux disease) Hiatal hernia Surgical History (Updated 06/13/23 @ 15:03 by Toshia Ordoñez) History of cholecystectomy History of removal of skin mole Family History (Updated 06/13/23 @ 15:04 by Toshia Ordoñez) Grandfather Heart disease Hypertension CAD (coronary artery disease) Cancer skinMother Cancer skin Social History (Updated 06/13/23 @ 15:05 by Toshia Ordoñez) Smoking Status: Current every day smoker tobacco type: cigarettes alcohol intake: never HPI HPI HPI: Patient is a 32-year-old female who presents for follow-up of a recent ER visit which was occasioned by an experience of projectile vomiting with coffee-ground emesis. They are referred for surgical consultation from emergency medicine. Patient presents today with her mother. She states that she generally has a lot of nausea, but states that it is worse now. She notes that this has led to some weight loss which she estimates at approximately 10 pounds. She does note that she has been able to stay hydrated. She denies any associated bloating. When asked about what possibly could have provoked her current symptoms, she readily admits that there is more stress in her life and that she went approximately 2 weeks without eating much. She notes that eating does seem to make her pain experience worse, however, there are no specific food triggers. Following ER visit she started back on omeprazole, but unfortunately has not noticed a significant improvement since that time. More chronically, patient reports that she always seems to take a long time to digest and because of this she only eats 1 meal a day. She does not sleep with her head propped up but instead sleeps on her stomach or on her left side. She does confirm a history of reflux disease and that she has aspirated in her sleep in the past. She estimates that this reflux is particularly troubling about 1 time per month. She also confirms a history of a hiatal hernia diagnosed with EGD in 2015. When asked about any additional abnormalities, patient does admit that she has had some blood with wiping. Asked about this frequent she states that it is occurring sometimes. But then goes on to state that it does occur at least every month. She believes that this was connected to an episode of constipation which lasted a couple of days where she did not have a bowel movement. She notes that she normally goes every day and normally experiences diarrhea. She states this is her new normal following her gallbladder surgery. She is not aware of any history of hemorrhoids and has not made any recent dietary changes. Patient reports a family history of GERD,?particularly endorsed by her mother. She states that both grandfathers have had ulcers that have required treatment. There is no history of GI malignancy. There is no history of inflammatory bowel disease. There is no history of diverticulitis. ROS General General: Yes weight change and fatigue; No appetite, colon cancer, breast cancer or weakness HEENT HEENT: No difficulty swallowing, eye injury, eye surgery, swollen glands or hoarseness Endo Endocrine: No thyroid disease, diabetes mellitus, thyroid cancer, Hair loss, heat intolerance or cold intolerance Skin Skin: No rash or changing moles Breast Breast: No left breast lump, right breast lump, nipple discharge, breast pain, abnormal mammogram, abnormal US or breast enlargement Musc Musculoskeletal: Yes back problems and arthritis; No rheumatoid arthritis, gout or joint pain Cardio Cardiovascular: No murmur, pacemaker, heart disease, atrial fibrillation, high blood pressure, heart attack, heart stent, palpitations, shortness of breat with exertion or chest pain Psych Psychiatric: Yes depression and anxiety; No hearing voices Resp Respiratory: No shortness of breath, No sleep apnea, No cough, No COPD, Yes asthma, No emphysema and No wheezing Gastro Gastrointestinal: Yes abdominal pain, Yes nausea or vomiting, Yes diarrhea, Yes constipation, No blood in stool, Yes acid reflux, No hemorrhoids, No ulcers, No gallbladder problem and No black,tarry stools Philip Hematologic: No blood thinners, No blood disorders, No bleeding, No anemia and No blood clots Neuro Neurologic: No system reviewed and no additional complaints, except as documented, No as per HPI, No abnormal gait, No abnormal hearing, No abnormal movements, No abnormal speech, No behavioral changes, No burning sensations, No confusion, No convulsions, No disequilibrium, No dizziness, No localized weakness, No frequent falls, No headache(s), No lack of coordination, No loss of vision, No memory loss, Yes numbness, No other visual disturbances, No radicular pain, No restless legs, No sensory deficit, No syncope, Yes tingling, No tremor(s), No weakness and No other Exam Const General: cooperative Orientation: alert, awake and oriented x3 Resp Effort & Inspection: normal respiratory effort GI Other: Well-healed port site incisions, nondistended, soft, tender to palpation epigastrium?otherwise unremarkable Assessment and Plan Assessment and Plan (1) GERD (gastroesophageal reflux disease): Status: Acute (2) Hiatal hernia: Status: Acute (3) Abdominal pain in female patient: Status: Acute (4) Bright red blood per rectum: Status: Acute Medications: New sucralfate (Carafate) 1 g PO QACHS 2 weeks 56 tabs 0RF Plan This is a 32-year-old female with a history of autism and diagnosed hiatal hernia (per endoscopy) who presents with postprandial epigastric discomfort and reports of possible coffee-ground emesis. By history I am suspicious for possible gastric ulcer versus exacerbation of her hiatal hernia symptoms. I held a lengthy conversation with patient and her mother regarding preventative strategies based on lifestyle modifications as well as some additional changes to include the addition of Carafate to her PPI and potential as needed medications with Pepcid and/or Tums. Still, based on her strong history of GERD and duration since her last scope (2014 by records) I am recommending we repeat her EGD. With her reports of some hematochezia, I would recommend that we pursue lower endoscopy as well. I would plan for assessment of upper GI tract for ulcers, H. pylori, and any chronic changes due to her GERD. From a lower standpoint, given her history of diarrhea and hematochezia find it reasonable to plan for random colon biopsies to assess for possible occult colitis versus other causes of her hematochezia. ? Carafate 1 g 4 times daily ? EGD and colonoscopy as discussed above I have examined the patient the following changes are noted: Ms. Lazar reports that she has done somewhat better since our last encounter and states that she has experienced nausea but no further vomiting. She also reports that she had some abdominal discomfort through her prep yesterday but this was diffuse in nature. She confirms that her output is now clear following this prep and denies any further questions in relation to our plans for endoscopy today. Therefore we will proceed with EGD and colonoscopy for evaluation of patient's complaints as enumerated above.
[2023-06-29 07:53] VITALS: BP 117/62; PULSE 55; RESP 18; TEMP 36.7; O2SAT 100; BMI 32.1
[2023-06-29 07:55] LABS: Internal QC Validated? YES +Cl - CLEAR BKGD; Pregnancy, Urine Negative Negative; Record Kit Lot#,Urine Preg HCG0000667200
[2023-06-29] MEDS: Lactated Ringers 1,000 ML 15 ML IV (08:03)
--- NOTE | 2023-06-29 08:30 | IMM_PTH ---
PATIENT: KEN CARD LOC: EN U#:[id number] AGE/SX: 32/F ROOM: RE06/29/[address]: Dr. Prateek Reyna MD : 1990 BED: DIS: 06/29/2023 SPEC #: [id number] RECD: 06/30/23 12:51 STATUS: OSVALDO REQ #: [id number] YRIS: 06/29/23 08:[address]: Prateek Reyna DEPT: IMMUNOHISTOCHEMISTRY RECD BY: Gemma Disla ENTERED: 06/30/23 12:51 SP TYPE: IMMUNO OTHR DR: No Primary Care Phys Tissues: A - Stomach, NOS Procedures: H Pylori (initial) PHYSICIAN & INSTITUTION [facility] [id number] SPECIMEN INFORMATION: Tissue Source: A - Gastric antrum Clinical Info: GERD, hiatal hernia, abdominal pain, bright red blood per rectum Specimen Number: [id number] CPT code: 79278 METHODOLOGY: Deparaffinized sections of prefer/formalin-fixed tissue or PAP/DQ stained slides are incubated with monoclonal/polyclonal antibodies/oligonucleotide probes. Localization is made via biotin free immunoperoxidase method. Appropriate controls are performed and reacted as expected. Results on target cell population are indicated in the following table: RESULTS: ANTIBODY / CLONE RESULT Block A H Pylori (polyclonal) negative These tests were developed and their performance characteristics determined by [facility]. They may not have been cleared or approved by the U.S. Food and Drug Administration. The FDA has determined that such clearance or approval is not necessary. The above immunohistochemical/dualISH markers are ordered and reviewed by the Pathologist. INTERPRETATION: A. Gastric antrum, biopsy: Negative for Helicobacter pylori organisms. DANIELLE:walker 07/03/2023
--- NOTE | 2023-06-29 08:30 | EGD_PTH ---
PATIENT: KEN CARD LOC: EN U#:[id number] AGE/SX: 32/F ROOM: RE06/29/[address]: Dr. Prateek Reyna MD : 1990 BED: DIS: 06/29/2023 SPEC #: [id number] RECD: 06/29/23 14:57 STATUS: OSVALDO JIM #: [id number] YRIS: 06/29/23 08:[address]: Prateek Reyna DEPT: SURGICAL PATHOLOGY RECD BY: Lilian Zepeda ENTERED: 06/30/23 07:56 SP TYPE: EGD BIOPSY OTHR DR: No Primary Care Phys Tissues: A - Gastric mucous membrane B - Gastric mucous membrane C - Esophagus, NOS D - Ascending colon E - Transverse colon F - Descending colon G - Sigmoid colon biopsy H - Rectum, NOS Procedures: Special Stain Group II Surgery Specimen Level IV Alcian Blue/PAS (control) HEADER OPERATION: Colonoscopy, EGD, biopsy, electrohemostasis PRE-OP DIAGNOSIS: GERD, hiatal hernia, abdominal pain, bright red blood per rectum TISSUE SUBMITTED: A - Gastric antrum biopsy for histo and H. pylori, B - Greater curvature biopsy, C - Gastroesophageal junction biopsy, D - Ascending biopsy, E - Transverse biopsy, F - Descending biopsy, G - Sigmoid biopsy, H - Rectal biopsy MICROSCOPIC DIAGNOSIS A. Gastric antrum, biopsy: Mild gastritis. See microscopic description and comment. B. Greater curvature, biopsy: Mild gastritis. See microscopic description. C. Gastroesophageal junction, biopsy: Fragments of gastroesophageal mucosa with chronic inflammation. Intestinal metaplasia (goblet cell metaplasia) is not identified. See comment. D. Ascending colon, biopsy: A fragment of colonic mucosa, no pathologic diagnosis. E. Transverse colon, biopsy: A fragment of colonic mucosa, no pathologic diagnosis. F. Descending colon, biopsy: A fragment of colonic mucosa, no pathologic diagnosis. G. Sigmoid colon, biopsy: Fragments of colonic mucosa, no pathologic diagnosis. H. Rectum, biopsy: A fragment of colonic mucosa, no pathologic diagnosis. SJ:walker 07/03/2023 COMMENT A. The results of immunohistochemistry for Helicobacter pylori will be reported separately ([id number]). C. Alcian blue/PAS stain with matched control is used in the evaluation of the specimen. MICROSCOPIC DESCRIPTION Slides are reviewed. A & B. The specimen shows fragments of gastric mucosa with chronic inflammatory cell infiltrates in the lamina propria consisting of lymphocytes and plasma cells, consistent with mild chronic gastritis. GROSS DESCRIPTION A - Received in fixative is one container labeled with the patient's name and designated gastric antrum. The specimen consists of multiple irregular fragments of light rhodes soft tissue that in aggregate measure 0.6 x 0.3 x 0.1 cm. The specimen is totally submitted in one cassette. B - Received in fixative is one container labeled with the patient's name and designated greater curvature biopsy. The specimen consists of one irregular fragment of light rhodes soft tissue that measures 0.5 x 0.2 x 0.1 cm. The specimen is totally submitted in one cassette. C - Received in fixative is one container labeled with the patient's name and designated GE junction biopsy. The specimen consists of two irregular fragments of light rhodes soft tissue that in aggregate measure 0.6 x 0.3 x 0.1 cm. The specimen is totally submitted in one cassette. D - Received in fixative is one container labeled with the patient's name and designated ascending colon biopsy. The specimen consists of one irregular fragment of light rhodes soft tissue that measures 0.4 x 0.2 x 0.1 cm. The specimen is totally submitted in one cassette. E - Received in fixative is one container labeled with the patient's name and designated transverse biopsy. The specimen consists of one irregular fragment of light rhodes soft tissue that measures 0.4 x 0.3 x 0.1 cm. The specimen is totally submitted in one cassette. F - Received in fixative is one container labeled with the patient's name and designated descending biopsy. The specimen consists of one irregular fragment of light rhodes soft tissue that measures 0.5 x 0.3 x 0.1 cm. The specimen is totally submitted in one cassette. G - Received in fixative is one container labeled with the patient's name and designated sigmoid biopsy. The specimen consists of two irregular fragments of light rhodes soft tissue that in aggregate measure 0.5 x 0.2 x 0.1 cm. The specimen is totally submitted in one cassette. H - Received in fixative is one container labeled with the patient's name and designated rectal biopsy. The specimen consists of one irregular fragment of light rhodes soft tissue that measures 0.3 x 0.3 x 0.1 cm. The specimen is totally submitted in one cassette. / DANIELLE:walker 06/30/2023 TC:3 CPT: 24196 x8, 07609
[2023-06-29 10:00] VITALS: BP 117/62; PULSE 59; RESP 16; TEMP 36.2; O2SAT 95
--- NOTE | 2023-06-29 10:02 | OP.CCLET_ITS ---
06/29/2023 No Primary Care Physician Re : Upper GI endoscopy procedure for Gabrielle Lazar Dear Care Physician This procedure was performed on June. My impressions and recommendations are as follows: Impressions : - No gross lesions in the duodenal bulb, in the first portion of the duodenum and in the second portion of the duodenum. - Gastritis. Biopsied. - Non-bleeding gastric ulcers with adherent clot. Biopsied. - Medium-sized hiatal hernia. No specimens collected. - Z-line irregular, 39 cm from the incisors. Biopsied. Treated with a monopolar probe. - The examination was otherwise normal. Recommendations : - Discharge patient to home (via wheelchair). - Resume previous diet today. - Continue present medications. - Await pathology results. - Telephone my office for pathology results in 1 week. My findings are described in the full procedure note, which is enclosed. If I can be of further assistance, please feel free to contact me at Doctor phone number(s): , Work: . Sincerely, Prateek Reyna MD 06/29/2023 10:02:20 AM This report has been signed electronically.
--- NOTE | 2023-06-29 10:02 | OP.EGD_ITS ---
Patient Name: Gabrielle Lazar Procedure Date: 06/29/2023 8:41 AM Date of : 1990 Age: 32 Procedure: Upper GI endoscopy Indications: Upper abdominal pain, Esophageal reflux, Coffee-ground emesis Providers: Prateek Reyna MD Medicines: See the Anesthesia note for documentation of the administered medications Patient Profile: Refer to note in patient chart for documentation of history and physical. Patient has symptoms of acute vomiting. Complications: No immediate complications. Estimated blood loss: Minimal. Procedure: Pre-Anesthesia Assessment: - The heart rate, respiratory rate, oxygen saturations, blood pressure, adequacy of pulmonary ventilation, and response to care were monitored throughout the procedure. After obtaining informed consent, the endoscope was passed under direct vision. Throughout the procedure, the patient's blood pressure, pulse, and oxygen saturations were monitored continuously. The gastroscope was introduced through the mouth, and advanced to the second part of duodenum. The upper GI endoscopy was somewhat difficult due to excessive bleeding. Successful completion of the procedure was aided by controlling the bleeding. The patient tolerated the procedure fairly well. Scope In: 8:55:22 AM Scope Out: 9:23:09 AM Total Procedure Duration Time 0 hours 27 minutes 47 seconds Findings: No gross lesions were noted in the duodenal bulb, in the first portion of the duodenum and in the second portion of the duodenum. Diffuse mild inflammation characterized by erythema was found in the gastric antrum. Biopsies were taken with a cold forceps for histology. Estimated blood loss was minimal. Three non-bleeding superficial gastric ulcers with adherent clot were found on the greater curvature of the gastric body. The largest lesion was 3 mm in largest dimension. Biopsies were taken with a cold forceps for histology. Estimated blood loss was minimal. A medium-sized hiatal hernia was present. No biopsies or other specimens were collected for this exam. The Z-line was irregular and was found 39 cm from the incisors. Biopsies were taken with a cold forceps for histology. Estimated blood loss: Minimal. Coagulation for hemostasis of bleeding caused by the procedure using monopolar probe was successful. The exam was otherwise without abnormality. Impression: - No gross lesions in the duodenal bulb, in the first portion of the duodenum and in the second portion of the duodenum. - Gastritis. Biopsied. - Non-bleeding gastric ulcers with adherent clot. Biopsied. - Medium-sized hiatal hernia. No specimens collected. - Z-line irregular, 39 cm from the incisors. Biopsied. Treated with a monopolar probe. - The examination was otherwise normal. Recommendation: - Discharge patient to home (via wheelchair). - Resume previous diet today. - Continue present medications. - Await pathology results. - Telephone my office for pathology results in 1 week. Procedure Code(s): --- Professional --- 86811, Esophagogastroduodenoscopy, flexible, transoral; with biopsy, single or multiple Diagnosis Code(s): --- Professional --- K29.70, Gastritis, unspecified, without bleeding K25.4, Chronic or unspecified gastric ulcer with hemorrhage K44.9, Diaphragmatic hernia without obstruction or gangrene K22.89, Other specified disease of esophagus R10.10, Upper abdominal pain, unspecified K21.9, Gastro-esophageal reflux disease without esophagitis K92.0, Hematemesis CPT copyright 2021 [employer]. All rights reserved. The codes documented in this report are preliminary and upon reimbursement counselor review may be revised to meet current compliance requirements. Prateek Reyna MD 06/29/2023 10:02:20 AM This report has been signed electronically. Number of Addenda: 0 Note Initiated On: 06/29/2023 8:41 AM
[2023-06-29 10:05] VITALS: BP 117/62; BP 98/68; PULSE 54; RESP 18; O2SAT 100
--- NOTE | 2023-06-29 10:08 | OP.COLON_ITS ---
Patient Name: Gabrielle Lazar Procedure Date: 06/29/2023 9:25 AM Date of : 1990 Age: 32 Procedure: Colonoscopy Indications: Chronic diarrhea, Hematochezia Providers: Prateek Reyna MD Medicines: See the Anesthesia note for documentation of the administered medications Patient Profile: Refer to note in patient chart for documentation of history and physical. Patient has symptoms of acute vomiting. Last Colonoscopy: none. The patient's first colonoscopy is today. Complications: No immediate complications. Estimated blood loss: Minimal. Procedure: Pre-Anesthesia Assessment: - The heart rate, respiratory rate, oxygen saturations, blood pressure, adequacy of pulmonary ventilation, and response to care were monitored throughout the procedure. - The heart rate, respiratory rate, oxygen saturations, blood pressure, adequacy of pulmonary ventilation, and response to care were monitored throughout the procedure. After I obtained informed consent, the scope was passed under direct vision. Throughout the procedure, the patient's blood pressure, pulse, and oxygen saturations were monitored continuously. The Colonoscope was introduced through the anus and advanced to the cecum, identified by appendiceal orifice and ileocecal valve. The colonoscopy was performed without difficulty. The patient tolerated the procedure well. The quality of the bowel preparation was adequate to identify polyps greater than 5 mm in size. Scope In: 9:26:28 AM Scope Withdrawal Time 0 hours 17 minutes 36 seconds Scope Out: 9:49:43 AM Total Procedure Duration Time 0 hours 23 minutes 15 seconds Findings: The perianal and digital rectal examinations were normal. There was a medium-sized lipoma, 15 mm in diameter, in the proximal ascending colon. No biopsies or other specimens were collected for this exam. The colon (entire examined portion) appeared normal. Five biopsies were obtained with cold forceps for evaluation of microscopic colitis randomly in the rectum, in the sigmoid colon, in the descending colon, in the transverse colon and in the ascending colon. Estimated blood loss was minimal. A few small-mouthed diverticula were found in the sigmoid colon. No biopsies or other specimens were collected for this exam. The exam was otherwise without abnormality on direct and retroflexion views. Impression: - Medium-sized lipoma in the proximal ascending colon. No specimens collected. - The entire examined colon is normal. - Diverticulosis in the sigmoid colon. No specimens collected. - The examination was otherwise normal on direct and retroflexion views. - Five biopsies were obtained in the rectum, in the sigmoid colon, in the descending colon, in the transverse colon and in the ascending colon. Recommendation: - Discharge patient to home (via wheelchair). - High fiber diet today. - Continue present medications. - Await pathology results. - Repeat colonoscopy in 10 years for screening purposes. - Telephone my office for pathology results in 1 week. Procedure Code(s): --- Professional --- 41997, Colonoscopy, flexible; with biopsy, single or multiple Diagnosis Code(s): --- Professional --- D17.5, Benign lipomatous neoplasm of intra-abdominal organs K52.9, Noninfective gastroenteritis and colitis, unspecified K92.1, Melena (includes Hematochezia) K57.30, Diverticulosis of large intestine without perforation or abscess without bleeding CPT copyright 2021 [employer]. All rights reserved. The codes documented in this report are preliminary and upon quantitative researcher review may be revised to meet current compliance requirements. Prateek Reyna MD 06/29/2023 10:08:26 AM This report has been signed electronically. Number of Addenda: 0 Note Initiated On: 06/29/2023 9:25 AM
--- NOTE | 2023-06-29 10:09 | OP.CCLET_ITS ---
06/29/2023 No Primary Care Physician Re : Colonoscopy procedure for Gabrielle Lazar Dear Care Physician This procedure was performed on June. My impressions and recommendations are as follows: Impressions : - Medium-sized lipoma in the proximal ascending colon. No specimens collected. - The entire examined colon is normal. - Diverticulosis in the sigmoid colon. No specimens collected. - The examination was otherwise normal on direct and retroflexion views. - Five biopsies were obtained in the rectum, in the sigmoid colon, in the descending colon, in the transverse colon and in the ascending colon. Recommendations : - Discharge patient to home (via wheelchair). - High fiber diet today. - Continue present medications. - Await pathology results. - Repeat colonoscopy in 10 years for screening purposes. - Telephone my office for pathology results in 1 week. My findings are described in the full procedure note, which is enclosed. If I can be of further assistance, please feel free to contact me at Doctor phone number(s): , Work: . Sincerely, Prateek Reyna MD 06/29/2023 10:08:26 AM This report has been signed electronically.
[2023-06-29 10:10] VITALS: BP 117/62; BP 96/65; PULSE 56; RESP 16; O2SAT 100
[2023-06-29 10:15] VITALS: BP 100/68; BP 117/62; PULSE 54; RESP 18; TEMP 36.9; O2SAT 100
[2023-06-29 10:35] VITALS: BP 117/62
== END 2023-06-29 11:01 | disposition home or self-care (01) ==
LOC: EN 07:22 → AC 07:22
PROVIDERS: Anesthesiology; Visit Provider Surgery
PROC: 0DJD8ZZ Inspection of Lower Intestinal Tract, Via Natural or Artificial Opening Endoscopic (ICD-10-PCS; CPT 45378; principal; 2023-06-29 08:25)
DX: K29.70 Gastritis, unspecified, without bleeding (principal); K44.9 Diaphragmatic hernia without obstruction or gangrene; K25.9 Gastric ulcer, unspecified as acute or chronic, without hemorrhage or perforation; K57.30 Diverticulosis of large intestine without perforation or abscess without bleeding; K92.1 Melena; K21.00 Gastro-esophageal reflux disease with esophagitis, without bleeding; D17.5 Benign lipomatous neoplasm of intra-abdominal organs; Z79.899 Other long term (current) drug therapy; J45.909 Unspecified asthma, uncomplicated
CPT/HCPCS: 43239; 45380; 81025; 88305; 88313; 88342; J7120; J2405